=== PATIENT | male | born 1985 | race Two or more races ===

== ENCOUNTER 2019-09-17 14:03 | Emergency (ER) | payer BC, OTHER ==
[~2019-09-17] VITALS: Ht 172.7 cm; Wt 81.8 kg
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
--- NOTE | 2019-09-17 14:23 | NUR ---
ERP AT NOW.
[2019-09-17] MEDS ORDERED: LORazepam 1MG TABLET PO ONE (14:30)
[2019-09-17 14:40] LABS: BASOPHILS # (AUTO) 0.03 x10^3/uL (0-0.1); BASOPHILS % (AUTO) 0 % (0-1); EOSINOPHILS % (AUTO) 0 % (1-7); LYMPHOCYTES # (AUTO) 1.24 x10^3/uL (1-3.4); LYMPHOCYTES % (AUTO) 12 % (22-44); MD NO; MEAN CORPUSCULAR HEMOGLOBIN 30.3 pg (27.5-34.5); MEAN CORPUSCULAR HGB CONC 33.4 g/dL (33.2-36.2); MEAN CORPUSCULAR VOLUME 90.8 fL (81-97); MEAN PLATELET VOLUME 8.9 fL (7.4-10.4); MONOCYTES # (AUTO) 0.51 x10^3/uL (0.2-0.8); MONOCYTES % (AUTO) 5 % (2-9); NEUTROPHILS # (AUTO) 8.42 x10^3/uL (1.8-6.8); NEUTROPHILS % (AUTO) 83 % (42-75); PLATELET COUNT 213 x10^3/uL (130-400); RED BLOOD COUNT 5.13 x10^6/uL (4.38-5.82)
[2019-09-17] MEDS ORDERED: LORazepam 1MG TABLET ONE (14:49)
[2019-09-17 14:53] LABS: ALBUMIN 4.1 g/dL (3.4-5.0); ANION GAP 13 mmol/L (5-15); CALCIUM 8.8 mg/dL (8.5-10.1); CHLORIDE 106 mmol/L (98-107); CREATININE 1.07 mg/dL (0.7-1.3)
--- NOTE | 2019-09-17 14:59 | NUR ---
PT RESTING IN GURNEY, AWAKENS EASILY. STILL ANXIOUS WHEN AWAKE. MEDICATED PER ORDERS. UNDERSTANDS POC.
--- NOTE | 2019-09-17 15:24 | NUR ---
PT STILL SLIGHTLY SHAKY, STUTTERING. STATES HE'S WAITING FOR HIS FRIEND TO CALL HIM BACK ABOUT A RIDE HOME. WILL RECHECK IN A FEW MIN.
[2019-09-17 15:45] VITALS: BP 136/70
--- NOTE | 2019-09-17 15:45 | NUR ---
PT STILL VERY SHAKY WHEN AWAKE, STILL REPORTING ANXIETY. ERP NOTIFIED, OKAY TO DISCHARGE PER ERP.
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
== END 2019-09-17 16:09 | disposition home or self-care (01) ==
LOC: ED 15:45
DX: F43.0 Acute stress reaction (principal); F41.1 Generalized anxiety disorder; R94.31 Abnormal electrocardiogram [ECG] [EKG]
CPT/HCPCS: 36415; 80048; 82040; 84443; 85025; 93005; 99284